=== PATIENT | female | born 1990 | race Caucasian/White ===

== ENCOUNTER 2016-03-29 08:11 | Emergency (ER) | payer OTHER ==
[2016-03-29 08:29] VITALS: TEMP 98.6; BMI 28.3
--- NOTE | 2016-03-29 08:52 | PDOC ---
History of Present Illness - General History Source: Patient Exam Limitations: No Limitations - History of Present Illness Initial Comments: CHIEF COMPLAINT: 25 y/o afebrile , approximately 10 weeks female c /o intermittent abd pain since 2am. HISTORY OF PRESENT ILLNESS: The patient states that the pain is in her lower abdomen and is coming every 6-8 minutes. She denies f/c, n/v/d, CP, SOB, back pain, hematuria, dysuria, vaginal bleeding, abnormal vaginal discharge. The patient's HUMAN RESOURCES BENEFITS ADMINISTRATOR is Dr. Beckwith. She had an ultrasound here 2 weeks ago. Vital signs on arrival are within normal limits. REVIEW OF SYSTEMS: GENERAL/CONSTITUTIONAL: No fever/chills. No weakness. No weight change. HEAD, EYES, EARS, NOSE AND THROAT: No change in vision. No ear pain or discharge. No sore throat. CARDIOVASCULAR: No chest pain or shortness of breath. RESPIRATORY: No cough, wheezing, or hemoptysis. GASTROINTESTINAL: +abd pain. No nausea, vomiting, diarrhea, constipation. GENITOURINARY: No dysuria, frequency, or change in urination. No vaginal bleeding MUSCULOSKELETAL: No joint or muscle swelling or pain. No neck or back pain. SKIN: No rash or easy bruising. NEUROLOGIC: No headache, vertigo, loss of consciousness, or loss of sensation. PHYSICAL EXAM: GENERAL: The patient is awake, alert, and fully oriented, in no acute distress. She is very well appearing, ambulatory, in NAD or obvious discomfort. HEAD: Normal with no signs of trauma. ENT: Pupils equal, round and reactive to light, extraocular movements intact, sclera anicteric, conjunctiva clear. Neck supple. LUNGS: Clear to auscultation bilaterally. Normal excursion. No respiratory distress or use of accessory muscles. CV: RRR, S1/S2, no MRG. Cap refill < 2 sec. ABDOMEN: Soft, non-distended, non-tender even to deep palpation, no hepatomegaly or splenomegaly, no masses. VAGINAL: Deferred EXTREMITIES: Normal range of motion, no edema. NEUROLOGICAL: Normal speech, normal gait. CN II-XII grossly intact. PSYCH: Normal mood, normal affect. SKIN: Warm, dry, normal turgor, no rashes or lesions noted. <Viola Cabello - Last Filed: 03/29/16 11:15> <Sabrina Hylton - Last Filed: 03/30/16 07:36> - General Chief Complaint: Pain Stated Complaint: ABD PAIN, 10 WKS PREG Time Seen by Provider: 03/29/16 08:41 Past History - Past Medical History Asthma: No Cancer: No Cardiac Disorders: No Diabetes: No HTN: No Seizures: No Thyroid Disease: No Other medical history: none - Psycho/Social/Smoking Cessation Hx Anxiety: No Suicidal Ideation: No Smoking History: Never smoked Have you smoked in the past 12 months: No Information on smoking cessation initiated: No Hx Alcohol Use: No Drug/Substance Use Hx: No Substance Use Type: None Hx Substance Use Treatment: No <Viola Cabello - Last Filed: 03/29/16 11:15> <Sabrina Hylton - Last Filed: 03/30/16 07:36> - Past Medical History Allergies/Adverse Reactions: Allergies Allergy/AdvReac Type Severity Reaction Status Date / Time No Known Allergies Allergy Verified 03/29/16 08:21 Home Medications: Ambulatory Orders NK [No Known Home Medication] 07/22/15 *Physical Exam - Vital Signs Last Vital Signs Temp Pulse Resp BP Pulse Ox 98.6 F 88 18 110/68 100 03/29/16 08:23 03/29/16 08:23 03/29/16 08:23 03/29/16 08:23 03/29/16 08:23 <Viola Cabello - Last Filed: 03/29/16 11:15> - Vital Signs Last Vital Signs Temp Pulse Resp BP Pulse Ox 98.6 F 78 18 109/78 100 03/29/16 08:23 03/29/16 11:31 03/29/16 11:31 03/29/16 11:31 03/29/16 11:31 <Sabrina Hylton - Last Filed: 03/30/16 07:36> ED Treatment Course - LABORATORY CBC & Chemistry Diagram: 03/29/16 10:50 03/29/16 09:27 <Viola Cabello - Last Filed: 03/29/16 11:15> - LABORATORY CBC & Chemistry Diagram: 03/29/16 10:50 03/29/16 09:27 - ADDITIONAL ORDERS Additional order review: 03/29/16 03/29/16 10:50 09:27 RBC 3.96 D Cancelled MCV 88.9 Cancelled MCHC 33.9 Cancelled RDW 13.3 Cancelled MPV 8.5 D Cancelled Neutrophils % 67.5 Cancelled Lymphocytes % 24.1 D Cancelled Monocytes % 7.0 Cancelled Eosinophils % 0.9 Cancelled Basophils % 0.5 Cancelled <Sabrina Hylton - Last Filed: 03/30/16 07:36> Medical Decision Making - Medical Decision Making A/P: 25 y/o afebrile female, , approximately 11 week female with LMP 01/10/16 c/o intermittent abd pain for the past 7 hours. Plan is as follows: 1. Labs 2. Ultrasound 3. UA/culture Ultrasound IMPRESSION: Single viable intrauterine gestation of 10 weeks 4 days. Labs unremarkable. UA negative for UTI. Gave patient all of the results. Instructed her to f/u with her HUMAN RESOURCES BENEFITS ADMINISTRATOR on Thursday and take Tylenol for pain if needed. Pt instructed to return to the ER with any worsening or concerning symptoms. The patient verbalizes understanding of all instructions, has no further questions and is awaiting discharge. <Viola Cabello - Last Filed: 03/29/16 11:15> *DC/Admit/Observation/Transfer <Viola Cabello - Last Filed: 03/29/16 11:15> - Attestations Physician Attestion: I reviewed the case with the mid-level practitioner and agree with the mid- level practitioner's assessment, diagnosis and disposition. <Sabrina Hylton - Last Filed: 03/30/16 07:36> Diagnosis at time of Disposition: Abdominal pain affecting - Discharge Dispostion Disposition: HOME Condition at time of disposition: Good - Referrals Referrals: Joo Cifuentes MD [Primary Care Provider] - - Patient Instructions Printed Discharge Instructions: DI for Abdominal Pain -- Early Additional Instructions: Discharge Instructions: -All of your tests and your ultrasound were normal -Please call your HUMAN RESOURCES BENEFITS ADMINISTRATOR on Thursday for follow up -Return to the ER with any worsening or concerning symptoms
[2016-03-29 09:59] LABS: ALBUMIN 3.1 g/dl (3.4-5.0); ANION GAP 10 (8-16); BILIRUBIN,TOTAL 0.1 mg/dL (0.2-1.0); CALCIUM 8.2 mg/dL (8.5-10.1); CO2 22 mmol/L (21-32); CREATININE 0.4 mg/dL (0.55-1.02); GLUCOSE,RANDOM 86 mg/dL (74-106); SGPT/ALT 56 U/L (12-78); TOT PROT 6.7 g/dl (6.4-8.2)
[2016-03-29 10:05] LABS: URINE APPEARANCE CLEAR; URINE BILIRUBIN NEGATIVE (NEGATIVE); URINE BLOOD NEGATIVE (NEGATIVE); URINE COLOR STRAW; URINE GLUCOSE (UA) NEGATIVE (NEGATIVE); URINE KETONE NEGATIVE (NEGATIVE); URINE LEUK ESTERASE NEGATIVE (NEGATIVE); URINE NITRITE NEGATIVE (NEGATIVE); URINE PROTEIN NEGATIVE (NEGATIVE); URINE UROBILINOGEN NEGATIVE E.U./dl (0.2-1.0)
[2016-03-29 10:15] LABS: ALK PHOS 69 U/L (45-117)
[2016-03-29 10:23] LABS: SGOT/AST 36 U/L (15-37)
[2016-03-29 10:59] LABS: BASOPHIL 0.5 % (0-2.0); EOSINOPHIL 0.9 % (0-4.5); MCH 30.1 pg (25.7-33.7); MCHC 33.9 g/dl (32.0-36.0); MEAN CELL VOLUME 88.9 fl (80-96); MEAN PLT VOLUME 8.5 fl (7.5-11.1); NEUTROPHILS 67.5 % (42.8-82.8); PLATELET COUNT 251 K/MM3 (134-434); RDW 13.3 % (11.6-15.6); WHITE BLOOD COUNT 9.6 K/mm3 (4.0-10.0)
[2016-03-29 11:31] VITALS: BP 109/78; PULSE 78
== END 2016-03-29 11:31 | disposition home or self-care (01) ==
LOC: JER 08:11
DX: O26.891 Other specified pregnancy related conditions, first trimester (principal); R10.84 Generalized abdominal pain; Z3A.10 10 weeks gestation of pregnancy
CPT/HCPCS: 36415; 76801-TC; 80053; 81003; 84702; 85025; 86850; 86900; 86901; 87086; 99282-25

== ENCOUNTER 2016-07-30 17:36 | Emergency (ER) | payer OTHER ==
[2016-07-30 17:47] VITALS: BMI 31.8
--- NOTE | 2016-07-30 21:01 | PDOC ---
History of Present Illness - General Chief Complaint: Respiratory Stated Complaint: SHORTNESS OF BREATH Time Seen by Provider: 07/30/16 18:38 - History of Present Illness Initial Comments: 07/30/16 20:53 CHIEF COMPLAINT: SOB HISTORY OF PRESENT ILLNESS: 25 yo 28 wks preg F, SOB x 3 wks, no vag bleeding, right leg" cramp" yesterday. Patient reports that sometimes she feels a "pressure" on her chest. No recent travel, no smoking, no hormones. PAST MEDICAL HISTORY: Denies past medical history FAMILY HISTORY: Denies SOCIAL HISTORY: Denies tobacco, alcohol, illicit drug use. SURGICAL HISTORY: Denies ALLERGIES: No known drug allergies REVIEW OF SYSTEMS General/Constitutional: Denies fever or chills. Denies weakness, weight change. HEENT: Denies change in vision. Denies ear pain or discharge. Denies sore throat. Cardiovascular: Denies chest pain or shortness of breath. Respiratory: SOB. Denies cough, wheezing, or hemoptysis. Gastrointestinal: Denies nausea, vomiting, diarrhea or constipation. Denies rectal bleeding. Genitourinary: Denies dysuria, frequency, or change in urination. Musculoskeletal: Denies joint or muscle swelling or pain. Denies neck or back pain. Skin and breasts: Denies rash or easy bruising. Neurologic: Denies headache, vertigo, loss of consciousness, or loss of sensation. PHYSICAL EXAM General Appearance: Well-appearing, appropriately dressed. No apparent distress. HEENT: EOMI, PERRLA, normal ENT inspection, normal voice, TMs normal, pharynx normal. No conjunctival pallor. No photophobia, scleral icterus. Neck: Supple. Trachea midline. No tenderness, rigidity, carotid bruit, stridor , lymphadenopathy, or thyromegaly. Respiratory/Chest: Lungs CTAB. Cardiovascular: RRR. S1, S2. Gastrointestinal/Abdominal: Normal bowel sounds. Abdomen soft, non-distended. No tenderness or rebound tenderness. No organomegaly, pulsatile mass, guarding , hernia, hepatomegaly, splenomegaly. Lymphatic: No adenopathy, tenderness. Musculoskeletal/Extremities: Normal inspection. FROM of all extremities, normal capillary refill. Pelvis Stable. No CVA tenderness. No tenderness to extremities, pedal edema, swelling, erythema or deformity. Integumentary: Appropriate color, dry, warm. No cyanosis, erythema, jaundice or rash Neurologic: caser up II-XII intact. Fully oriented, alert. Appropriate mood/affect. Motor strength 5/5. No appreciable EOM palsy, facial droop or sensory deficit. 07/30/16 21:18 07/31/16 01:52 Past History - Past Medical History Allergies/Adverse Reactions: Allergies Allergy/AdvReac Type Severity Reaction Status Date / Time No Known Allergies Allergy Verified 07/30/16 17:47 Home Medications: Ambulatory Orders NK [No Known Home Medication] 07/22/15 Asthma: No Cancer: No Cardiac Disorders: No Diabetes: No HTN: No Seizures: No Thyroid Disease: No - Psycho/Social/Smoking Cessation Hx Anxiety: No Suicidal Ideation: No Smoking History: Never smoked Have you smoked in the past 12 months: No Hx Alcohol Use: No Drug/Substance Use Hx: No Substance Use Type: None Hx Substance Use Treatment: No *Physical Exam - Vital Signs Last Vital Signs Temp Pulse Resp BP Pulse Ox 98.0 F 91 H 20 112/73 100 07/30/16 17:44 07/30/16 17:44 07/30/16 17:44 07/30/16 17:44 07/30/16 17:44 ED Treatment Course - LABORATORY CBC & Chemistry Diagram: 07/30/16 21:44 07/30/16 21:44 Medical Decision Making - Medical Decision Making 07/31/16 01:32 25 yo 28 wks F presents to ED with intermittent SOB x 3 wks. VS remarkable for HR 91. -CBC, CMP, PT/INR, D-dimer -EKG EKG NSR D-dimer 386 B/l duplex US r/o DVT US negative for DVT -ABG ABG WNL. Patient sent to L&D for further evaluation. 07/31/16 01:51
--- NOTE | 2016-07-30 21:55 | PDOC ---
*Physical Exam - Vital Signs Last Vital Signs Temp Pulse Resp BP Pulse Ox 98.0 F 91 H 20 112/73 100 07/30/16 17:44 07/30/16 17:44 07/30/16 17:44 07/30/16 17:44 07/30/16 17:44 ED Treatment Course - LABORATORY CBC & Chemistry Diagram: 07/30/16 21:44 07/30/16 21:44 Medical Decision Making - Medical Decision Making 07/30/16 21:54 agree with care from DOUG Mai *DC/Admit/Observation/Transfer Diagnosis at time of Disposition: Abdominal - Discharge Dispostion Disposition: HOME Condition at time of disposition: Stable - Referrals Referrals: Joo Cifuentes MD [Primary Care Provider] - - Patient Instructions Print Language: CHINESE
[2016-07-30 22:02] LABS: BASOPHIL 0.5 % (0-2.0); EOSINOPHIL 0.9 % (0-4.5); MCH 30.1 pg (25.7-33.7); MCHC 33.2 g/dl (32.0-36.0); MEAN CELL VOLUME 90.6 fl (80-96); MEAN PLT VOLUME 8.9 fl (7.5-11.1); NEUTROPHILS 72.7 % (42.8-82.8); PLATELET COUNT 276 K/MM3 (134-434); RDW 13.2 % (11.6-15.6); WHITE BLOOD COUNT 14.3 K/mm3 (4.0-10.0)
[2016-07-30 22:58] LABS: ALBUMIN 3.1 g/dl (3.4-5.0); ALK PHOS 120 U/L (45-117); ANION GAP 10 (8-16); BILIRUBIN,TOTAL 0.2 mg/dL (0.2-1.0); CALCIUM 8.9 mg/dL (8.5-10.1); CO2 26 mmol/L (21-32); CREATININE 0.4 mg/dL (0.55-1.02); GLUCOSE,RANDOM 76 mg/dL (74-106); SGOT/AST 21 U/L (15-37); SGPT/ALT 26 U/L (12-78); TOT PROT 6.9 g/dl (6.4-8.2)
[2016-07-31 01:06] LABS: ALLENS TEST POSITIVE; ART PUNCT SITE RIGHT RADIAL; ARTERIAL BLD GAS O2 SATURATION 98.6 % (90-98.9); ARTERIAL BLOOD GAS BASE EXCESS -0.9 meq/l (-2-2); ARTERIAL BLOOD GAS HCO3 22.4 meq/L (22-26); ARTERIAL BLOOD GAS pH 7.43 (7.35-7.45); METHEMOGLOBIN 0.6 % (0.4-1.5)
[2016-07-31 01:07] LABS: LPM/O2% ROOM AIR; PT. ON O2? NO
[2016-07-31 02:39] VITALS: BP 108/57; PULSE 78; TEMP 97.8
--- NOTE | 2016-07-31 12:24 | EKG ---
Test Reason : Blood Pressure : / mmHG Vent. Rate : 086 BPM Atrial Rate : 086 BPM P-R Int : 148 ms QRS Dur : 078 ms QT Int : 380 ms P-R-T Axes : 033 056 021 degrees QTc Int : 454 ms NORMAL SINUS RHYTHM NORMAL ECG NO PREVIOUS ECGS AVAILABLE Confirmed by CRISTHIAN ALMARAZ MD ([id number]) on 07/31/2016 12:24:24 PM Referred By: Confirmed By:CRISTHIAN ALMARAZ MD
== END 2016-07-31 03:10 | disposition home or self-care (01) ==
LOC: JER 17:36
DX: O26.893 Other specified pregnancy related conditions, third trimester (principal); R10.84 Generalized abdominal pain; Z3A.28 28 weeks gestation of pregnancy
CPT/HCPCS: 36415; 36600; 80053; 82375; 82803; 83050; 85025; 85379; 85610; 93005; 93010; 93970-TC; 99282-25

== ENCOUNTER 2016-10-23 07:15 | Inpatient (IN) | payer OTHER ==
[2016-10-23 08:14] VITALS: BMI 34.7
[2016-10-23 08:56] LABS: BASOPHIL 0.6 % (0-2.0); MCH 30.4 pg (25.7-33.7); MCHC 34.2 g/dl (32.0-36.0); MEAN CELL VOLUME 88.8 fl (80-96); MEAN PLT VOLUME 9.7 fl (7.5-11.1); NEUTROPHILS 69.7 % (42.8-82.8); PLATELET COUNT 228 K/MM3 (134-434); RDW 13.2 % (11.6-15.6); WHITE BLOOD COUNT 12.5 K/mm3 (4.0-10.0)
[2016-10-23 09:13] LABS: INR 0.96 (0.82-1.09); PROTHROMBIN TIME (PATIENT) 10.6 SEC (9.98-11.88)
[2016-10-23 09:16] LABS: ACTIVATED PTT 26.8 SECONDS (26.9-34.4)
[2016-10-23 09:28] LABS: ANION GAP 9 (8-16); CO2 23 mmol/L (21-32); CREATININE 0.5 mg/dL (0.55-1.02); GLUCOSE,RANDOM 96 mg/dL (74-106)
--- NOTE | 2016-10-23 12:04 | PN ---
Progress Note (short form) - Note Progress Note: 10.25 AM cervidil inserted for Dr Stokes cx post, cx close, adela, vx -3/-4 FHr cat-1
[2016-10-23] MEDS ORDERED: DINOPROSTONE 10 MG VAGINAL SUPPOSITORY VG ONE (14:58)
[2016-10-23] MEDS ORDERED: PROMETHAZINE HCL 25 MG/1 ML VIAL IVPUSH ONE ×2 (14:58→22:07)
[2016-10-23] MEDS ORDERED: BUTORPHANOL TARTRATE 1 MG/ML VIAL IVPUSH PRN (14:58)
[2016-10-23] MEDS ORDERED: DEXTROSE 5%-LACTATED RINGERS 1,000 ML IV SCH (15:00)
[2016-10-23] MEDS ORDERED: AMPICILLIN - 2 GM in SODIUM CHLORIDE 100 ML IVPB ONE (15:01)
--- NOTE | 2016-10-23 15:03 | PN ---
Progress Note (short form) - Note Progress Note: cx 1 cm 50 vx -3 mi, fhr cat1
--- NOTE | 2016-10-23 15:13 | HP ---
Past Medical History - Primary Care Physician PCP:: Roger Stokes - Admission Chief Complaint: 41 weeks, oligo ,for cervidil induction History of Present Illness: 25 yo f edc by sono 10/16/16 with hx of oligo for cervidil induction, rba discussed ,cx 1 cm 50 vx -3 mi, fhr cat 1. no contraction History Source: Patient Limitations to Obtaining History: No Limitations - Past Medical History ...: 2 ...Para: 1 ...Term: 1 ...: 0 ...Spon : 0 ...Induced : 0 ...Multiple Gestation: 0 ...LMP: 01/10/16 ... Weeks Gestation by Dates: 40.6 ...EDC by Dates: 10/17/16 ...EDC by Sono: 10/16/16 - Past Surgical History Hx Myomectomy: No Hx Transabdominal Cerclage: No - Smoking History Smoking history: Never smoked Have you smoked in the past 12 months: No - Alcohol/Substance Use Hx Alcohol Use: No - Social History History of Recent Travel: No Home Medications - Allergies Allergies/Adverse Reactions: Allergies Allergy/AdvReac Type Severity Reaction Status Date / Time No Known Allergies Allergy Verified 10/23/16 07:43 - Home Medications Home Medications: Ambulatory Orders Vit/Iron Fumarate/FA [ Tablet] 1 tab PO DAILY 10/23/16 Review of Systems - Review of Systems Constitutional: reports: No Symptoms Eyes: reports: No Symptoms HENT: reports: No Symptoms Neck: reports: No Symptoms Cardiovascular: reports: No Symptoms Gastrointestinal: reports: No Symptoms Genitourinary: reports: No Symptoms Breasts: reports: No Symptoms Reported Musculoskeletal: reports: No Symptoms Integumentary: reports: No Symptoms Neurological: reports: No Symptoms Endocrine: reports: No Symptoms Hematology/Lymphatic: reports: No Symptoms Psychiatric: reports: No Symptoms Physical Exam - Maternity Vital Signs: Vital Signs Temperature 98.2 F 10/23/16 14:00 Pulse Rate 84 10/23/16 14:00 Respiratory Rate 20 10/23/16 14:00 Blood Pressure 107/68 10/23/16 14:00 O2 Sat by Pulse Oximetry (%) Constitutional: Yes: Well Nourished, No Distress, Calm Eyes: Yes: WNL, Conjunctiva Clear, EOM Intact HENT: Yes: WNL, Atraumatic, Normocephalic Neck: Yes: WNL, Supple, Trachea Midline Cardiovascular: Yes: WNL, Regular Rate and Rhythm Breast(s): Yes: WNL - Abdominal Exam/OB Number of Fetuses: Single Presentation: Vertex Contractions: Yes Regularity: Regular Monitor Mode: External Heart Rate Location: LLQ Accelerations: Uniform Decelerations: None - Vaginal Exam/OB Vaginal Bleediing: No Speculum Exam: Yes Amniotic Membrane Status: Intact Nitrazine Test: Negative Presentation: Vertex/Position Station: -3 - Physical Exam Deep Tendon Reflex Grade: Normal +2 ...Motor Strength: WNL Psychiatric: Yes: WNL - Labs Lab Results: CBC, BMP 10/23/16 08:33 10/23/16 08:33 Hemorrhage Risk Assessment - Risk Factors Medium Risk Factors: Yes: None High Risk Factors: Yes: None Risk Score: 1 Risk Level: Medium Risk Problem List - Problems (1) with 41 completed weeks gestation Code(s): Z3A.41 - 41 WEEKS GESTATION OF (2) Oligohydramnios Code(s): O41.00X0 - OLIGOHYDRAMNIOS, UNSP TRIMESTER, NOT APPLICABLE OR UNSP Qualifiers: Fetus number: single or unspecified fetus Trimester: third trimester Qualified Code(s): O41.03X0 - Oligohydramnios, third trimester, not applicable or unspecified Assessment/Plan plan admit for cervidil induction
[2016-10-23] MEDS ORDERED: BUTORPHANOL TARTRATE 1 MG/ML VIAL IVPUSH ONE (22:07)
--- NOTE | 2016-10-23 22:07 | PN ---
Progress Note (short form) - Note Progress Note: cx 4 cm, 80 vx -2 mi, fhr cat 1, cervidil removed Problem List - Problems (1) with 41 completed weeks gestation Code(s): Z3A.41 - 41 WEEKS GESTATION OF (2) Oligohydramnios Code(s): O41.00X0 - OLIGOHYDRAMNIOS, UNSP TRIMESTER, NOT APPLICABLE OR UNSP Qualifiers: Fetus number: single or unspecified fetus Trimester: third trimester Qualified Code(s): O41.03X0 - Oligohydramnios, third trimester, not applicable or unspecified
[2016-10-24] MEDS ORDERED: OXYTOCIN 15 UNITS/ LR 250 ML 250 ML IVPB SCH (00:30)
--- NOTE | 2016-10-24 00:36 | PN ---
Progress Note (short form) - Note Progress Note: cx 8 cm 80 vx -1 arom clear, fhr cat1 Problem List - Problems (1) with 41 completed weeks gestation Code(s): Z3A.41 - 41 WEEKS GESTATION OF (2) Oligohydramnios Code(s): O41.00X0 - OLIGOHYDRAMNIOS, UNSP TRIMESTER, NOT APPLICABLE OR UNSP Qualifiers: Fetus number: single or unspecified fetus Trimester: third trimester Qualified Code(s): O41.03X0 - Oligohydramnios, third trimester, not applicable or unspecified
[2016-10-24] MEDS ORDERED: AMPICILLIN - 100 ML IVPB SCH (01:30)
[2016-10-24] MEDS ORDERED: WITCH HAZEL 50% (TUCKS) 40 PAD/JAR PAD TP PRN (01:36)
[2016-10-24] MEDS ORDERED: BENZOCAINE 20% 57 GM BOTTLE TP PRN (01:36)
[2016-10-24] MEDS ORDERED: BISACODYL 10 MG SUPP.RECT RC PRN (01:36)
[2016-10-24] MEDS ORDERED: METHYLERGONOVINE MALEATE 0.2 MG/1 ML AMP IM PRN (01:36)
[2016-10-24] MEDS ORDERED: BENZOCAINE 28 GM HEMORRHOIDAL OINTMENT TP PRN (01:36)
[2016-10-24] MEDS ORDERED: D5W-LR W/ 20 UNITS OXYTOCIN 1,000 ML IV SCH (01:45)
[2016-10-24] MEDS ORDERED: oxyCODONE HCL 5 MG TABLET PO PRN (02:13)
[2016-10-24 02:34] LABS: VENOUS BLOOD GAS HCO3 21.7 meq/L (19-25)
[2016-10-24 02:35] LABS: VENOUS PH 7.26 (7.32-7.42)
[2016-10-24 02:37] LABS: ARTERIAL BLD GAS O2 SATURATION 36.4 % (90-98.9); ARTERIAL BLOOD GAS BASE EXCESS 7.6 meq/l (-2-2); ARTERIAL BLOOD GAS HCO3 23.7 meq/L (22-26); ARTERIAL BLOOD GAS PO2 24.9 mmHg (80-100)
[2016-10-24 02:38] LABS: ARTERIAL BLOOD GAS pH 7.13 (7.35-7.45)
[2016-10-24] MEDS: FERROUS SO4 325 MG TABLET (FP) PO SCH ×2 (09:36→21:52)
[2016-10-24] MEDS: PRENATAL VITAMINS W/ FOLIC ACID TABLET (FP) PO SCH (09:36)
[2016-10-24] MEDS: ACETAMINOPHEN 325 MG TABLET (FP) PO PRN (20:33)
[2016-10-24] MEDS: IBUPROFEN 600 MG TABLET (FP) PO PRN (20:39)
[2016-10-25 07:27] LABS: BASOPHIL 0.2 % (0-2.0); EOSINOPHIL 1.4 % (0-4.5); MCH 30.8 pg (25.7-33.7); MCHC 34.1 g/dl (32.0-36.0); MEAN CELL VOLUME 90.2 fl (80-96); MEAN PLT VOLUME 9.5 fl (7.5-11.1); NEUTROPHILS 62.7 % (42.8-82.8); PLATELET COUNT 203 K/MM3 (134-434); RDW 13.4 % (11.6-15.6); WHITE BLOOD COUNT 14.6 K/mm3 (4.0-10.0)
[2016-10-25] MEDS: FERROUS SO4 325 MG TABLET (FP) PO SCH ×2 (10:23→21:21)
[2016-10-25] MEDS: PRENATAL VITAMINS W/ FOLIC ACID TABLET (FP) PO SCH (10:23)
--- NOTE | 2016-10-25 10:59 | PN ---
Progress Note (short form) - Note Progress Note: ppd 1 doing well, no c/o voids ok, no excess vaginal bleeding CBC, BMP 10/25/16 07:00 10/23/16 08:33 Last Vital Signs Temp Pulse Resp BP Pulse Ox 98.2 F 93 H 18 113/71 10/24/16 22:00 10/24/16 22:00 10/24/16 22:00 10/24/16 22:00 abdomen soft, no cva, uterus firm, non tender lochia mild ,no calf tenderness plan ambulate , plan for d/c home in am Problem List - Problems (1) with 41 completed weeks gestation Code(s): Z3A.41 - 41 WEEKS GESTATION OF (2) Oligohydramnios Code(s): O41.00X0 - OLIGOHYDRAMNIOS, UNSP TRIMESTER, NOT APPLICABLE OR UNSP Qualifiers: Fetus number: single or unspecified fetus Trimester: third trimester Qualified Code(s): O41.03X0 - Oligohydramnios, third trimester, not applicable or unspecified
[2016-10-25] MEDS ORDERED: DIPHTH,PERTUSS(ACELL),TET 0.5 ML DISP.SYRIN IM ONE (11:00)
[2016-10-25] MEDS: ACETAMINOPHEN 325 MG TABLET (FP) PO PRN (14:31)
[2016-10-25] MEDS: IBUPROFEN 600 MG TABLET (FP) PO PRN (14:32)
[2016-10-25] MEDS ORDERED: SENNOSIDES/DOCUSATE COMBO (SENNA PLUS) TABLET (UD) PO PRN (22:00)
[2016-10-26] MEDS: IBUPROFEN 600 MG TABLET (FP) PO PRN ×2 (00:47→09:10)
[2016-10-26] MEDS: ACETAMINOPHEN 325 MG TABLET (FP) PO PRN ×2 (00:47→09:11)
[2016-10-26] MEDS: FERROUS SO4 325 MG TABLET (FP) PO SCH (09:12)
[2016-10-26] MEDS: PRENATAL VITAMINS W/ FOLIC ACID TABLET (FP) PO SCH (09:12)
--- NOTE | 2016-10-26 14:28 | DS ---
Physical Exam-ASSISTANT PROFESSOR OF ART Vital Signs: Vital Signs Temperature 97.6 F 10/25/16 22:00 Pulse Rate 86 10/25/16 22:00 Respiratory Rate 20 10/25/16 22:00 Blood Pressure 118/73 10/25/16 22:00 O2 Sat by Pulse Oximetry (%) Constitutional: Yes: Well Nourished, No Distress, Calm Eyes: Yes: WNL, Conjunctiva Clear, EOM Intact HENT: Yes: WNL, Atraumatic, Normocephalic Neck: Yes: WNL, Supple, Trachea Midline Cardiovascular: Yes: WNL, Regular Rate and Rhythm Respiratory: Yes: WNL, Regular, CTA Bilaterally Gastrointestinal: Yes: WNL ...Rectal Exam: Yes: WNL Renal/: Yes: WNL ....Post : Yes: Uterus firm, Uterus non-tender, Slight lochia rubra Breast(s): Yes: WNL Musculoskeletal: Yes: WNL Extremities: Yes: WNL Edema: No Integumentary: Yes: WNL Neurological: Yes: WNL, Alert, Oriented ...Motor Strength: WNL Psychiatric: Yes: WNL, Alert, Oriented Labs: CBC, BMP 10/25/16 07:00 10/23/16 08:33 Delivery - Delivery Vaginal Delivery: Spontaneous (no complication) Type of Anesthesia: Local Episiotomy/Laceration: 1st degree EBL (cc): 300 Delivery, Single - Stages of Labor Date 1st Stage Initiatied: 10/23/16 Time 1st Stage Initiated: 21:00 Date 2nd Stage Initiated: 10/24/16 Time 2nd Stage Initiated: 01:30 Date of Delivery: 10/24/16 Time of Delivery: 01:42 Time Placenta Delivered: 02:10 Placenta: Yes: Spontaneous - Condition of Ev[employer] Leadership/Electrical Foreman Present: No Infant Gender: Male Weight: 7 lb 8 oz Position: Left, OA Total Hours ROM (Hrs/Mins): 1hr 40m - 1 Minute Total Score: 9 5 Minutes Total Score: 9 - Feeding Plan Initial Plan: Elected not to breastfeed exclusively throughout hospitalization Discharge Summary Reason For Visit: INDUCTION Current Active Problems Oligohydramnios (Acute) with 41 completed weeks gestation (Acute) Procedures: Principal: Hospital Course: non complicated Condition: Good - Instructions Diet, Activity, Other Instructions: regular diet, follow up [facility] care 4 weeks,if pain, heavy bleeding call Md Referrals: Roger Stokes MD [Staff Physician] - Disposition: HOME - Home Medications Comprehensive Discharge Medication List: Ambulatory Orders Vit/Iron Fumarate/FA [ Tablet] 1 tab PO DAILY 10/23/16 Ibuprofen [Motrin -] 600 mg PO QID #28 tablet 10/24/16
[2016-10-26 14:39] VITALS: BP 109/57; PULSE 90; TEMP 98.4
== END 2016-10-26 14:15 | disposition home or self-care (01) | DRG 560 ==
LOC: JLDR 07:15 → J3W 10-24 04:28
PROVIDERS: ADMIT Obstetrics & Gynecology; ATTEND Obstetrics & Gynecology
PROC: 3E0P7GC Introduction of Other Therapeutic Substance into Female Reproductive, Via Natural or Artificial Opening (ICD-10-PCS; 2016-10-23)
PROC: 10E0XZZ Delivery of Products of Conception, External Approach (ICD-10-PCS; principal; 2016-10-24)
PROC: 0HQ9XZZ Repair Perineum Skin, External Approach (ICD-10-PCS; 2016-10-24)
DX: O41.03X0 Oligohydramnios, third trimester, not applicable or unspecified (principal); O48.0 Post-term pregnancy; O70.0 First degree perineal laceration during delivery; Z3A.41 41 weeks gestation of pregnancy; Z37.0 Single live birth
CPT/HCPCS: 36415; 36600; 59409; 80048; 82803; 85025; 85610; 85730; 86593; 86850; 86900; 86901; 90715

== ENCOUNTER 2019-02-28 09:43 | Emergency (ER) | payer OTHER ==
[2019-02-28 09:53] VITALS: BP 142/79; PULSE 110; TEMP 98.8; BMI 29.0
[2019-02-28] MEDS ORDERED: ACETAMINOPHEN 325 MG TABLET (FP) PO ONE (10:34)
[2019-02-28] MEDS ORDERED: ACETAMINOPHEN 325 MG TABLET (FP) ONE (10:36)
--- NOTE | 2019-02-28 11:22 | PDOC ---
History of Present Illness - General Chief Complaint: Cold Symptoms Stated Complaint: Cold Symptoms Time Seen by Provider: 02/28/19 10:13 History Source: Patient Exam Limitations: No Limitations Past History - Past Medical History Allergies/Adverse Reactions: Allergies Allergy/AdvReac Type Severity Reaction Status Date / Time No Known Allergies Allergy Verified 02/28/19 09:50 Home Medications: Ambulatory Orders NK [No Known Home Medication] 02/28/19 Asthma: No Cancer: No Cardiac Disorders: No COPD: No Diabetes: No HTN: No Seizures: No Thyroid Disease: No Other medical history: DENIES - Immunization History Immunization Up to Date: No - Psycho Social/Smoking Cessation Hx Smoking History: Never smoked Have you smoked in the past 12 months: No Hx Alcohol Use: No Drug/Substance Use Hx: No Substance Use Type: None, Alcohol Hx Substance Use Treatment: No *Physical Exam - Vital Signs Last Vital Signs Temp Pulse Resp BP Pulse Ox 98.8 F 110 H 18 142/79 100 02/28/19 09:50 02/28/19 09:50 02/28/19 09:50 02/28/19 09:50 02/28/19 09:50 - Physical Exam General Appearance: No: Apparent Distress HEENT: negative: Muffled/Hoarse voice, Pharyngeal Erythema, Tonsillar Exudate, Tonsillar Erythema, Nasal Congestion, Rhinorrhea, Sinus Tenderness Respiratory/Chest: positive: Lungs Clear, Normal Breath Sounds. negative: Respiratory Distress Cardiovascular: negative: Murmur Gastrointestinal/Abdominal: positive: Soft. negative: Tender Integumentary: positive: Normal Color Neurologic: positive: Alert ED Treatment Course - Medications Given in the ED: ED Medications Discontinued Medications Generic Name Dose Route Start Last Admin Trade Name Mazinq PRN Reason Stop Dose Admin Acetaminophen 975 mg 02/28/19 10:34 02/28/19 10:38 Tylenol - PO 02/28/19 10:35 975 mg ONCE ONE Administration Medical Decision Making - Medical Decision Making 28 y/o F no sig pmh presents with subjective fever, chills, body aches, mild dry cough, rhinorrhea and congestion x 3days. Has been using Mucinex without relief of sxs. +sick family members with similar sxs. Did not take any antipyretics today. Denies recent travel, throat pain, sob, cp, abd pain, n/v/ d. Likely viral syndrome Patient outside window for flu treatment Given Tylenol and feeling better stable for dc 02/28/19 11:16 Discharge - Discharge Information Problems reviewed: Yes Clinical Impression/Diagnosis: Viral URI Condition: Stable Disposition: HOME - Admission No - Additional Discharge Information Prescription Drug Monitoring Program (I-STOP) results: I-STOP not reviewed - Follow up/Referral - Patient Discharge Instructions Patient Printed Discharge Instructions: DI for Viral Upper Respiratory Infection -- Adult Additional Instructions: Thank you for choosing [facility]. It was a pleasure taking care of you. Alternate between Tylenol every 4 and Motrin every 6 hours as needed for fever Drink plenty of water to stay hydrated Follow-up with your doctor in 2 days Return to the Emergency Department if your symptoms worsen or persist or other concerning symptoms. - Post Discharge Activity
== END 2019-02-28 11:47 | disposition home or self-care (01) ==
LOC: JERFT 09:43
DX: J06.9 Acute upper respiratory infection, unspecified (principal); B97.89 Other viral agents as the cause of diseases classified elsewhere
CPT/HCPCS: 99281-25

== ENCOUNTER 2019-04-30 13:58 | Emergency (ER) | payer SELFPAY ==
--- NOTE | 2019-04-30 14:01 | PDOC ---
History of Present Illness - General Chief Complaint: Cold Symptoms Stated Complaint: COUGH Time Seen by Provider: 04/30/19 13:59 Past History - Past Medical History Allergies/Adverse Reactions: Allergies Allergy/AdvReac Type Severity Reaction Status Date / Time No Known Allergies Allergy Verified 04/30/19 14:01 Home Medications: Ambulatory Orders NK [No Known Home Medication] 02/28/19 Asthma: No Cancer: No Cardiac Disorders: No COPD: No Diabetes: No HTN: No Seizures: No Thyroid Disease: No - Immunization History Immunization Up to Date: No - Psycho Social/Smoking Cessation Hx Smoking History: Never smoked Have you smoked in the past 12 months: No Hx Alcohol Use: No Drug/Substance Use Hx: No Substance Use Type: None, Alcohol Hx Substance Use Treatment: No ED Treatment Course - RADIOLOGY Radiology Studies Ordered: Category Date Time Status CHEST X-RAY PORTABLE* [RAD] Stat Radiology 04/30/19 13:59 Ordered
[2019-04-30 14:03] VITALS: BP 121/50; PULSE 102; TEMP 98.8; BMI 24.2
--- NOTE | 2019-04-30 14:12 | PDOC ---
History of Present Illness - General Chief Complaint: Cold Symptoms Stated Complaint: COUGH Time Seen by Provider: 04/30/19 13:59 History Source: Patient Exam Limitations: No Limitations - History of Present Illness Initial Comments: 04/30/19 14:07 Patient is a 28 year old female with no significant medical or surgical history presents with productive cough x 1 month with clear phlegm. States developed fever and sore throat since yesterday. Reports no direct contact with any individual with + covid. 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 Is this a multiple visit Asthma Patient?: No Timing/Duration: reports: other (one month) Severity: reports: mild Possible Cause: Yes: no prior episodes Modifying Factors: improves with: coughing Associated Symptoms: reports: cough Past History - Travel Traveled outside of the country in the last 30 days: No Close contact w/someone who was outside of country & ill: No - Past Medical History Allergies/Adverse Reactions: Allergies Allergy/AdvReac Type Severity Reaction Status Date / Time No Known Allergies Allergy Verified 04/30/19 14:01 Home Medications: Ambulatory Orders Benzonatate [Tessalon Pearls -] 100 mg PO TID PRN #21 capsule 04/30/19 Asthma: No Cancer: No Cardiac Disorders: No COPD: No Diabetes: No HTN: No Seizures: No Thyroid Disease: No - Immunization History Immunization Up to Date: No - Psycho Social/Smoking Cessation Hx Smoking History: Never smoked Have you smoked in the past 12 months: No Hx Alcohol Use: No Drug/Substance Use Hx: No Substance Use Type: None, Alcohol Hx Substance Use Treatment: No Respiratory Specific PMHX - Complaint Specific PMHX Hx Airway Support: No Hx Asthma: No Hx Vaping: No Hx Exposure to Respiratory Irritants: No Hx Pulmonary Embolus: No Review of Systems - Review of Systems Able to Perform ROS?: Yes Is the patient limited Thai proficient: No Constitutional: No: Chills, Fever HEENTM: Yes: Throat Pain. No: Nose Congestion, Throat Swelling Respiratory: Yes: Cough ABD/GI: Yes: Diarrhea. No: Poor Appetite : No: Hematuria, Pain, Urgency Musculoskeletal: No: Gout, Muscle Weakness Integumentary: No: Erythema, Flushing Neurological: No: Numbness, Paresthesia Psychiatric: No: Change in Appetite *Physical Exam - Vital Signs Last Vital Signs Temp Pulse Resp BP Pulse Ox 98.8 F 102 H 20 121/50 L 100 04/30/19 14:01 04/30/19 14:01 04/30/19 14:01 04/30/19 14:01 04/30/19 14:01 - Physical Exam General Appearance: Yes: Nourished, Appropriately Dressed HEENT: positive: TMs Normal, Pharynx Normal Neck: positive: Supple. negative: Lymphadenopathy (R), Lymphadenopathy (L) Respiratory/Chest: positive: Lungs Clear Cardiovascular: positive: Regular Rhythm, Regular Rate Gastrointestinal/Abdominal: positive: Soft. negative: Tenderness Extremity: positive: Normal Capillary Refill Medical Decision Making - Medical Decision Making 04/30/19 14:12 Patient is a 28 year old female with no significant medical or surgical history presents with productive cough x 1 month with clear phlegm. States developed fever and sore throat since yesterday. Reports no direct contact with any individual with + covid. 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 cough -chest xray 04/30/19 17:46 clear lungs d/c home with social distancing instructions Discharge - Discharge Information Problems reviewed: Yes Clinical Impression/Diagnosis: Cough Condition: Good Disposition: HOME - Admission No - Additional Discharge Information Prescriptions: Benzonatate [Tessalon Pearls -] 100 mg PO TID PRN #21 capsule PRN Reason: Cough - Follow up/Referral - Patient Discharge Instructions - Post Discharge Activity Work/Back to School Note: Back to Work
== END 2019-04-30 14:44 | disposition home or self-care (01) ==
LOC: JER 13:58
DX: R05 Cough (principal)
CPT/HCPCS: 71045-TC-FY; 99284-25

== ENCOUNTER 2021-07-04 11:47 | Emergency (ER) | payer OTHER ==
[2021-07-04 12:07] VITALS: BP 136/86; PULSE 90; TEMP 98.4; BMI 29.2
[2021-07-04] MEDS ORDERED: KETOROLAC TROMETHAMINE 30 MG/1 ML VIAL IM ONE (12:47)
== END 2021-07-04 13:47 | disposition home or self-care (01) ==
LOC: JERFT 11:47
PROC: 3E0233Z Introduction of Anti-inflammatory into Muscle, Percutaneous Approach (ICD-10-PCS; principal; 2021-07-04)
DX: S06.0X1A Concussion with loss of consciousness of 30 minutes or less, initial encounter (principal); G44.319 Acute post-traumatic headache, not intractable; V86.95XA Unspecified occupant of 3- or 4- wheeled all-terrain vehicle (ATV) injured in nontraffic accident, initial encounter
CPT/HCPCS: 70450-TC; 99284-25

== ENCOUNTER 2022-04-12 15:03 | Emergency (ER) | payer OTHER ==
[2022-04-12 15:21] VITALS: BP 117/78; PULSE 117; RESP 18; TEMP 98; BMI 28.0
== END 2022-04-12 16:10 | disposition home or self-care (01) ==
LOC: JERFT 15:03 → JER 15:03 → JERFT 16:10
DX: J06.9 Acute upper respiratory infection, unspecified (principal); R09.81 Nasal congestion; R05.1 Acute cough
CPT/HCPCS: 0241U-QW; 99283-25

== ENCOUNTER 2023-01-13 21:41 | Emergency (ER) | payer OTHER ==
[2023-01-13 21:46] VITALS: BP 120/71; PULSE 112; RESP 18; TEMP 98; BMI 29.0
[2023-01-13] MEDS ORDERED: ALBUTEROL SO4 0.083% IH SOL 2.5 MG/3 ML VIAL.NEB. NEB ONE ×2 (22:10→22:12)
[2023-01-13] MEDS ORDERED: SODIUM CHLORIDE FOR INHALATION 3 ML VIAL.NEB IH ONE (22:10)
[2023-01-13] MEDS ORDERED: ACETAMINOPHEN 325 MG TABLET (FP) PO ONE (22:21)
[2023-01-13] MEDS ORDERED: ACETAMINOPHEN 325 MG TABLET (FP) ONE (22:40)
== END 2023-01-13 23:37 | disposition home or self-care (01) ==
LOC: JERFT 21:41 → JER 21:41 → JERFT 23:37
PROC: 3E0F7GC Introduction of Other Therapeutic Substance into Respiratory Tract, Via Natural or Artificial Opening (ICD-10-PCS; principal; 2023-01-13)
DX: J45.909 Unspecified asthma, uncomplicated (principal); J32.9 Chronic sinusitis, unspecified; R09.81 Nasal congestion; R05.9 Cough, unspecified
CPT/HCPCS: 99284-25

== ENCOUNTER 2024-04-25 19:01 | Emergency (ER) | payer OTHER ==
[2024-04-25 19:39] VITALS: BP 124/82; PULSE 78; RESP 19; TEMP 98; BMI 33.3
[2024-04-25] MEDS ORDERED: LIDOCAINE VISCOUS 2% ORAL/TOP 15 ML UNIT-DOSE CUP ONE (20:40)
[2024-04-25] MEDS: LIDOCAINE VISCOUS 2% ORAL/TOP 15 ML UNIT-DOSE CUP MM ONE (20:45)
== END 2024-04-25 22:35 | disposition home or self-care (01) ==
LOC: JER 19:01
DX: R09.A2 Foreign body sensation, throat (principal); R05.9 Cough, unspecified
CPT/HCPCS: 70360-TC-FY; 71046-TC-FY; 99283-25